=== PATIENT | female | born 1935 | race Caucasian/White ===

== ENCOUNTER 2017-10-26 16:06 | Inpatient (IN) ==
[2017-10-26] MEDS ORDERED: Sod Chloride 0.9% Inj 1,000 ML IV.CONT SCH (17:00)
[2017-10-26 17:46] LABS: Baso # (Auto) 0.1 th/mm3 (0.0-0.2); Baso % (Auto) 0.4 % (0.0-2.0); Eos # (Auto) 0.2 th/mm3 (0.0-0.4); Eos % (Auto) 1.2 % (0.0-4.0); Hematocrit 46.8 % (35.0-46.0); Hemoglobin 15.1 gm/dL (11.6-15.3); Lymph # (Auto) 3.8 th/mm3 (1.0-4.8); Lymph % (Auto) 27.1 % (9.0-44.0); Mean Corpuscular HGB Conc 32.3 % (32.0-36.0); Mean Corpuscular Hemoglobin 23.9 pg (27.0-34.0); Mean Corpuscular Volume 73.9 fL (80.0-100.0); Mean Platelet Volume 8.1 fL (7.0-11.0); Mono # (Auto) 1.1 th/mm3 (0.0-0.9); Mono % (Auto) 8.2 % (0.0-8.0); Neut # (Auto) 8.8 th/mm3 (1.8-7.7); Neut % (Auto) 63.1 % (16.0-70.0); Platelet Count 397 th/mm3 (150-450); Red Blood Count 6.33 mil/mm3 (4.00-5.30); Red Cell Distribution Width 17.6 % (11.6-17.2); White Blood Count 13.9 th/mm3 (4.0-11.0)
--- NOTE | 2017-10-26 17:47 | XR ---
EXAM DATE: 10/26/2017 5:39 PM EDT AGE/SEX: 82 years / Female INDICATIONS: Stroke symptoms. CLINICAL DATA: This is the patient's initial encounter. Patient reports that signs and symptoms have been present for 1 day and indicates a pain score of 0/10. MEDICAL/SURGICAL HISTORY: None. None. COMPARISON: No prior exams available for comparison. FINDINGS: A single AP view of the chest demonstrates the lungs to be symmetrically aerated without evidence of mass, infiltrate or effusion. The cardiomediastinal contours are unremarkable. Osseous structures a re intact. CONCLUSION: No acute cardiopulmonary disease demonstrated. Electronically signed by: Dave Lepe MD 10/26/2017 5:45 PM EDT
--- NOTE | 2017-10-26 17:50 | ED ---
HPI General Chief complaint: Neuro Symptoms/Deficit Stated complaint: stroke symptoms/dr sent Time Seen by Provider: 10/26/17 16:23 History of Present Illness HPI narrative: This is a 82-year-old female with history of hypertension, hyperlipidemia, diabetes mellitus, who presents today with complaints that she is not been as verbal as she normally is for the last 4 days. Patient's daughter and at the bedside report that she has had decreased mentation over the last 4 days. They state that she normally is very verbal and communicative. They state that over the last 4 days she has not been communicative and they have noted slight slurred speech. There is no complaints of headache. There is no complaints of extremity weakness or unsteady gait. states that they went to their primary care doctor, Dr. BP Jimenez in [place]. They report that Dr. Jimenez told him that he was concerned that she had had a stroke. He had ordered an outpatient MRI for tomorrow however they stated that they wish to have the MRI sooner if he was concerned about a stroke. He informed him that they were going to come here for further evaluation. There are no other further complaints at the time of my evaluation. Related Data Home Medications Medication Instructions Recorded Confirmed aspirin 81 mg PO DAILY 10/26/17 10/26/17 atorvastatin 10 mg PO DAILY 10/26/17 10/26/17 fluticasone-salmeterol [Advair 1 inh INHALATION BID 10/26/17 10/26/17 Diskus] metformin 500 mg PO BID 10/26/17 10/26/17 metoprolol tartrate 50 mg PO BID 10/26/17 10/26/17 polysaccharide iron complex 150 mg PO DAILY 10/26/17 10/26/17 [Poly-Iron] triamterene-hydrochlorothiazid 1 tab PO DAILY 10/26/17 10/26/17 [Maxzide-25mg] Allergies Allergy/AdvReac Type Severity Reaction Status Date / Time No Known Allergies Allergy Unverified 10/26/17 16:28 Review of Systems ROS: all other systems reviewed are negative Constitutional Denies chills and Denies fever(s) Eyes Denies blurry vision and Denies diplopia ENT Denies vertigo, Denies dizziness and Denies headache(s) Cardiovascular Denies chest pain and Denies lightheadedness Respiratory Denies chest congestion and Denies dyspnea Gastrointestinal Denies nausea and Denies vomiting Genitourinary Reports system reviewed and no additional complaints, except [facility] Musculoskeletal Reports system reviewed and no additional complaints, except as [facility] Integumentary/Breasts Reports system reviewed and no additional complaints, except as [facility] Neurologic Reports behavioral changes, Denies dizziness, Denies headache(s), Denies lack of coordination, Denies memory loss and Reports other Psychiatric Reports system reviewed and no additional complaints, except as [facility] Endocrine Reports system reviewed and no additional complaints, except as [facility] PMFSH Social History Social History Second Hand Smoke Exposure: No Smoking Status: Never smoker How Often Do You Have a Drink Containing Alcohol: Never Recent Travel in [facility] within the Last 8 Weeks: No Recent Out of Country Travel within the Last 8 Weeks: No Immunization History Tetanus Immunization: Unsure Exam Narrative Exam Narrative: GENERAL: Well-developed well-nourished female in no acute respiratory distress. SKIN: Focused skin assessment warm/dry. HEAD: Atraumatic. Normocephalic. EYES: Extraocular muscles were intact. No scleral icterus. No injection or drainage. ENT: No nasal bleeding or discharge. Mucous membranes pink and moist. NECK: Trachea midline. Supple. CARDIOVASCULAR: Regular rate and rhythm. No murmur appreciated. RESPIRATORY: No accessory muscle use. Clear to auscultation. Breath sounds equal bilaterally. GASTROINTESTINAL: Abdomen soft, non-tender, nondistended. Hepatic and splenic margins not palpable. MUSCULOSKELETAL: No obvious deformities. No clubbing. No cyanosis. No edema. NEUROLOGICAL: Awake and alert. No obvious cranial nerve deficits. Motor grossly within normal limits. Speech appears normal. and daughter state that it seems slightly more slurred than normal. Course Initial Documented Vital Signs Temperature 97.8 F 10/26/17 16:14 Pulse Rate 73 10/26/17 16:14 Respiratory Rate 17 10/26/17 16:14 Blood Pressure 204/85 H 10/26/17 16:14 Pulse Oximetry 96 10/26/17 16:14 Last Documented Vital Signs Temperature 97.8 F 10/26/17 16:14 Pulse Rate 76 10/26/17 19:20 Respiratory Rate 16 10/26/17 19:20 Blood Pressure 181/86 H 10/26/17 19:20 Pulse Oximetry 97 10/26/17 19:20 Medical Decision Making MDM Narrative Medical decision making narrative: This is a 82-year-old female history of hypertension, hyperlipidemia, diabetes mellitus, presents with 4 day history of decreased speaking and questionable slurred speech. Patient was seen by her primary care doctor today who recommended getting an MRI because he was concerned about a stroke. The patient has no focal deficits. 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 I do not appreciate slurred speech at this time. 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 The patient is out of the window. She will be admitted to the hospital and have a neurology consult. There is a [facility] the [facility]. Differential Diagnosis Differential Diagnosis: CVA versus TIA versus metabolic derangement Lab Data Result diagrams: 10/26/17 17:10 10/26/17 17:10 Lab Results 10/26/17 10/26/17 10/26/17 Range/Units 17:10 17:10 17:10 WBC 13.9 H (4.0-11.0) th/mm3 RBC 6.33 H (4.00-5.30) mil/mm3 Hgb 15.1 (11.6-15.3) gm/dL Hct 46.8 H (35.0-46.0) % MCV 73.9 L (80.0-100.0) fL MCH 23.9 L (27.0-34.0) pg MCHC 32.3 (32.0-36.0) % RDW 17.6 H (11.6-17.2) % Plt Count 397 (150-450) th/mm3 MPV 8.1 (7.0-11.0) fL Neut % (Auto) 63.1 (16.0-70.0) % Lymph % (Auto) 27.1 (9.0-44.0) % Cass % (Auto) 8.2 H (0.0-8.0) % Eos % (Auto) 1.2 (0.0-4.0) % Baso % (Auto) 0.4 (0.0-2.0) % Neut # (Auto) 8.8 H (1.8-7.7) th/mm3 Lymph # (Auto) 3.8 (1.0-4.8) th/mm3 Cass # (Auto) 1.1 H (0.0-0.9) th/mm3 Eos # (Auto) 0.2 (0.0-0.4) th/mm3 Baso # (Auto) 0.1 (0.0-0.2) th/mm3 WBC Differential . Differential Comment Auto diff final PT 10.4 (9.8-11.6) sec INR 1.0 Ratio APTT 27.3 (24.3-30.1) sec Sodium 140 (136-145) meq/L Potassium 3.9 (3.5-5.1) meq/L Chloride 104 (98-107) meq/L Carbon Dioxide 25.6 (21.0-32.0) meq/L Anion Gap 10 (5-15) meq/L BUN 17 (7-18) mg/dL Creatinine 1.25 H (0.50-1.00) mg/dL Estimated GFR 41 L (>89) mL/min Random Glucose 103 (74-106) mg/dL Calcium 9.8 (8.5-10.1) mg/dL Imaging Data Radiologist's impression: Chest X-Ray 10/26/17 16:51 CONCLUSION: No acute cardiopulmonary disease demonstrated. Head CT 10/26/17 16:51 CONCLUSION: 1. Focal hypodensity in the left thalamus characteristic of a nonhemorrhagic infarct. 2. No other significant abnormality. . Head MRI 10/26/17 16:56 CONCLUSION: 1. Acute nonhemorrhagic infarct left thalamus 2. Otherwise unremarkable exam. Head MRA 10/26/17 16:56 CONCLUSION: 1. Variant anatomy. Otherwise, unremarkable exam. Discharge Plan Discharge Disposition Patient Disposition: 30 Still Patient Discharge Details Diagnosis: Thalamic stroke, Hypertension, Diabetes mellitus, Hyperlipidemia Physicians Team ED Provider: Lamont Gil Primary Care Provider: UNKNOWN, Rxs /Orders / Referrals /Forms Prescriptions: No Action metformin 500 mg Tablet 500 mg PO BID RF: 0 fluticasone-salmeterol [Advair Diskus] 250-50 mcg/dose Blister With Device 1 inh INHALATION BID RF: 0 atorvastatin 10 mg Tablet 10 mg PO DAILY RF: 0 polysaccharide iron complex [Poly-Iron] 150 mg iron Capsule 150 mg PO DAILY RF: 0 aspirin 81 mg Tablet,Delayed Release (Dr/Ec) 81 mg PO DAILY RF: 0 metoprolol tartrate 50 mg Tablet 50 mg PO BID RF: 0 triamterene-hydrochlorothiazid [Maxzide-25mg] 37.5-25 mg Tablet 1 tab PO DAILY RF: 0 Status ED Status: With Doctor
[2017-10-26 17:53] LABS: Activated Partial Thrombo Time 27.3 sec (24.3-30.1); Prothrombin Time 10.4 sec (9.8-11.6)
[2017-10-26 17:54] LABS: Calcium 9.8 mg/dL (8.5-10.1); Carbon Dioxide 25.6 meq/L (21.0-32.0); Potassium 3.9 meq/L (3.5-5.1)
--- NOTE | 2017-10-26 18:18 | MR ---
EXAM DATE: 10/26/2017 6:11 PM EDT AGE/SEX: 82 years / Female INDICATIONS: CVA. Expressive aphasia. CLINICAL DATA: This is the patient's initial encounter. Patient reports that signs and symptoms have been present for 1 day and indicates a pain score of 0/10. MEDICAL/SURGICAL HISTORY: Diabetes mellitus type II. Hypertension. None. COMPARISON: [facility] [place], CT HEAD W/O CONTRAST, 10/26/2017. . TECHNIQUE: Multiplanar, multisequence examination of the brain was performed without contrast. FINDINGS: Cerebrum: Focal restricted diffusion is identified in the left thalamus. Signal intensity throughout the cerebral hemispheres otherwise unremarkable. There is no evidence of hemorrhage, mass effect or significant edema. White Matter: No significant signal abnormalities are seen in the white matter. Posterior Fossa: The cerebellum and brainstem are intact. The 4th ventricle is midline. The cerebel lopontine angle is unremarkable. The cerebellar tonsils are normal in position. Diffusion Imaging: No focal areas of restricted diffusion are seen. No evidence of acute infarction . Extracranial: The visualized portions of the orbits and paranasal sinuses are unremarkable. CONCLUSION: 1. Acute nonhemorrhagic infarct left thalamus 2. Otherwise unremarkable exam. Electronically signed by: Mele Keen MD 10/26/2017 6:16 PM EDT
--- NOTE | 2017-10-26 18:24 | MR ---
EXAM DATE: 10/26/2017 6:08 PM EDT AGE/SEX: 82 years / Female INDICATIONS: CVA. Expressive aphasia. CLINICAL DATA: This is the patient's initial encounter. Patient reports that signs and symptoms have been present for 1 day and indicates a pain score of 0/10. MEDICAL/SURGICAL HISTORY: Diabetes mellitus type II. Hypertension. None. COMPARISON: [facility] [place], MR HEAD W/O CONTRAST, 10/26/2017. . TECHNIQUE: 3D [id number] MRA was performed. Source images, multiplanar STS MIP, and 3D volum e MIP reconstructions were reviewed. FINDINGS: There is excellent visualization of the major intracranial arteries out to the second-order branch ve ssels. Variant anatomy is seen with persistent circulation bilaterally. There is no evidence f or aneurysm, vessel truncation or stenosis, and no evidence for vascular malformation. CONCLUSION: 1. Variant anatomy. Otherwise, unremarkable exam. Electronically signed by: Vinayak Mcneill MD 10/26/2017 6:22 PM EDT
--- NOTE | 2017-10-26 18:26 | CT ---
EXAM DATE: 10/26/2017 6:21 PM EDT AGE/SEX: 82 years / Female INDICATIONS: Altered mental status, abnormal speech, aphasia. CLINICAL DATA: This is the patient's initial encounter. Patient reports that signs and symptoms have been present for 1 week and indicates a pain score of 0/10. MEDICAL/SURGICAL HISTORY: Hypertension. Diabetes. None. RADIATION DOSE: 56.35 CTDI (mGy) COMPARISON: [facility] [place], MR HEAD W/O CONTRAST, 10/26/2017. . TECHNIQUE: CT of the head without contrast. Using automated exposure control and adjustment of the mA and/or kV according to patient size, radiation dose was kept as low as reasonably achievable to ob tain optimal diagnostic quality images. DICOM format image data is available electronically for revi ew and comparison. FINDINGS: Cerebrum: Focal hypodensity is identified within the left thalamus. Cerebral hemispheres are otherwi se unremarkable. There is no subacute hemorrhage, mass effect or edema. CSF spaces are unremarkable. Posterior Fossa: The cerebellum and brainstem are intact. The 4th ventricle is midline. The cerebe llopontine angle is unremarkable. Extracranial: The visualized portion of the orbits is intact. Skull: The calvaria is intact. No evidence of skull fracture. CONCLUSION: 1. Focal hypodensity in the left thalamus characteristic of a nonhemorrhagic infarct. 2. No other significant abnormality. . Electronically signed by: Mele Keen MD 10/26/2017 6:24 PM EDT
[2017-10-26] MEDS ORDERED: Dextrose 50% in Water 50 ML Vial IV.PUSH PRN (20:01)
--- NOTE | 2017-10-26 21:28 | P.HP ---
History of Present Illness Service: [facility] Primary Care Physician: UNKNOWN History of Present Illness: 82-year-old female with a past medical history significant for diabetes mellitus , hypertension and hyperlipidemia presents to the emergency department for evaluation of possible stroke. The patient's family reports that approximately 4 days ago she began to be slow to respond with word finding difficulties. She has been significantly fatigued without lateralizing weakness. No facial droop was noted. No slurred speech. The patient was seen by her PCP today who was concerned that she may have had a stroke. He ordered an outpatient MRI that could not be done until tomorrow. The family wished to have her worked up sooner than that so they brought her to the emergency department for further evaluation. Inpatient Certification: I certify that the inpatient services were ordered in accordance with Medicare regulations governing the order. This includes certification that hospital inpatient services are reasonable and necessary and in the case of services not specified as inpatient-only under 42 CFR 419.22(n), that they are appropriately provided as inpatient services in accordance to with the 2-midnight benchmark under 43 CFR 412.3(e) Estimated Total Length of Stay (Days): 2 Plans for Post Hospital Care: Not yet determined Review of Systems Denies fever or chills Denies blurry vision, otorrhea, rhinorrhea Denies sore throat and cough No chest pain, palpitations No shortness of breath or wheezing No abdominal pain Denies constipation/diarrhea/nausea/vomiting Denies muscle pain No rashes PMFSH - History History Provided By: Patient, Family Member, Significant Other - Medical History Medical History: Medical History (Last Updated 10/26/17 @ 21:23 by Zoë Herrmann MD) Diabetes mellitus Hyperlipidemia Hypertension - Surgical History Surgical History: Surgical History (Last Updated 10/26/17 @ 21:23 by Zoë Herrmann MD) No history of previous surgery - Family History Family History: Family History (Last Updated 10/26/17 @ 21:23 by Zoë Herrmann MD) Other Diabetes mellitus - Tobacco History Second Hand Smoke Exposure: No Tobacco Use In Past 30 Days: No Smoking Status: Never smoker - Alcohol History How Often Do You Have a Drink Containing Alcohol: Never - Travel History Recent Travel in the [place] Within the Last 8 Weeks: No Recent Travel Out of the Country Within the Last 8 Weeks: No - Immunization History Tetanus Immunization: Unsure Medications and Allergies Active Medications: Active Medications Aspirin (Ecotrin) 81 mg PO DAILY [facility] Atorvastatin Calcium (Lipitor) 10 mg PO DAILY [facility] Budesonide/Formoterol Fumarate (Symbicort 160/4.5 Mcg Inh) 2 puff INH BID [facility] Dextrose (D50w Vial) 50 ml IV.PUSH UNSCH PRN PRN Reason: PER HYPOGLYCEMIA PROTOCOL Glucagon (Glucagon Inj) 1 mg OTHER PRN PRN PRN Reason: for Hypoglycemia Protocol Heparin Sodium (Porcine) (Heparin Inj) 5,000 units SQ Q8HR STEPHEN Sodium Chloride (Ns Inj) 1,000 mls @ 70 mls/hr IV.CONT .[id number] [facility] Insulin Human Regular (Novolin R Correctional Sugar Inj) 0 units SQ ACHS AND 3AM STEPHEN; Protocol Metoprolol Tartrate (Lopressor) 50 mg PO BID [facility] Sodium Chloride (Ns Flush) 2 ml IV.FLUSH BID STEPHEN Sodium Chloride (Ns Flush) 2 ml IV.FLUSH PRN PRN PRN Reason: FLUSH AFTER USING IV ACCESS Triamterene/HCTZ (Maxzide 37.5 Mg-25 Mg) 1 tab PO DAILY [facility] Allergies Allergy/AdvReac Type Severity Reaction Status Date / Time No Known Allergies Allergy Unverified 10/26/17 16:28 Home Medications Medication Instructions Recorded Confirmed Type aspirin 81 mg PO DAILY 10/26/17 10/26/17 History atorvastatin 10 mg PO DAILY 10/26/17 10/26/17 History fluticasone-salmeterol [Advair 1 inh INHALATION BID 10/26/17 10/26/17 History Diskus] metformin 500 mg PO BID 10/26/17 10/26/17 History metoprolol tartrate 50 mg PO BID 10/26/17 10/26/17 History polysaccharide iron complex 150 mg PO DAILY 10/26/17 10/26/17 History [Poly-Iron] triamterene-hydrochlorothiazid 1 tab PO DAILY 10/26/17 10/26/17 History [Maxzide-25mg] Exam Vital signs: Vital Signs 10/26/17 16:14 10/26/17 16:30 10/26/17 16:51 Temperature 97.8 F Pulse Rate 73 73 Respiratory Rate 17 17 Blood Pressure 204/85 H 192/80 H Pulse Oximetry 96 97 96 10/26/17 17:45 10/26/17 19:20 Temperature Pulse Rate 75 76 Respiratory Rate 17 16 Blood Pressure 166/71 H 181/86 H Pulse Oximetry 98 97 Intake & Output 10/26/17 10/26/17 10/27/17 06:59 18:59 06:59 Weight 145 kg Narrative: Gen.: No acute distress Head: Normocephalic. Atraumatic. EENT: Pupils equal round and reactive to light. Nose without drainage. Airway intact. Throat without injection. Cardiovascular: Regular rate and rhythm. No murmurs, rubs or gallops. Respiratory: Lungs clear to auscultation bilaterally. No wheezes or rhonchi. Abdomen: Soft, nontender, nondistended. No peritoneal signs. Musculoskeletal: No gross deformities. No edema. Skin: No obvious rashes or erythema. Neuro: Sensation intact throughout. Cranial nerves II through XII intact. 5/5 strength in the upper and lower extremities. 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 Normal speech however patient is slow to respond to questions. Results - Labs CBC & Chem 7: 10/26/17 17:10 10/26/17 17:10 Labs: Laboratory Results - last 24 hr 10/26/17 10/26/17 10/26/17 17:10 17:10 17:10 WBC 13.9 H RBC 6.33 H Hgb 15.1 Hct 46.8 H MCV 73.9 L MCH 23.9 L MCHC 32.3 RDW 17.6 H Plt Count 397 MPV 8.1 Neut % (Auto) 63.1 Lymph % (Auto) 27.1 Swift % (Auto) 8.2 H Eos % (Auto) 1.2 Baso % (Auto) 0.4 Neut # (Auto) 8.8 H Lymph # (Auto) 3.8 Swift # (Auto) 1.1 H Eos # (Auto) 0.2 Baso # (Auto) 0.1 WBC Differential . Differential Comment Auto diff final PT 10.4 INR 1.0 APTT 27.3 Sodium 140 Potassium 3.9 Chloride 104 Carbon Dioxide 25.6 Anion Gap 10 BUN 17 Creatinine 1.25 H Estimated GFR 41 L Random Glucose 103 Calcium 9.8 - Imaging Impressions Chest X-Ray 10/26/17 16:51 CONCLUSION: No acute cardiopulmonary disease demonstrated. Head CT 10/26/17 16:51 CONCLUSION: 1. Focal hypodensity in the left thalamus characteristic of a nonhemorrhagic infarct. 2. No other significant abnormality. . Head MRI 10/26/17 16:56 CONCLUSION: 1. Acute nonhemorrhagic infarct left thalamus 2. Otherwise unremarkable exam. Head MRA 10/26/17 16:56 CONCLUSION: 1. Variant anatomy. Otherwise, unremarkable exam. Caprini VTE Risk Assessment Caprini VTE Risk Assessment: Moderate/High Risk (score >= 2) Caprini Risk Assessment Model: Point Value = 1 Point Value = 2 Point Value = 3 Point Value = 5 Age 41-60 Minor surgery BMI > 25 kg/m2 Swollen legs Varicose veins or History of unexplained or recurrent spontaneous Oral contraceptives or hormone replacement Sepsis (< 1 month) Serious lung disease, including pneumonia (< 1 month) Abnormal pulmonary function Acute myocardial infarction Congestive heart failure (< 1 month) History of inflammatory bowel disease Medical patient at bed rest Age 61-74 Arthroscopic surgery Major open surgery (> 45 min) Laparoscopic surgery (> 45 min) Malignancy Confined to bed (> 72 hours) Immobilizing plaster cast Central venous access Age >= 75 History of VTE Family history of VTE Factor V Leiden Prothrombin [id number] Lupus anticoagulant Anticardiolipin antibodies Elevated serum homocysteine Heparin-induced thrombocytopenia Other congenital or acquired thrombophilia Stroke (< 1 month) Elective arthroplasty Hip, pelvis, or leg fracture Acute spinal cord injury (< 1 month) Prophylaxis Regimen: Total Risk Factor Score Risk Level Prophylaxis Regimen 0-1 Low Early ambulation 2 Moderate Order ONE of the following: *Sequential Compression Device (SCD) *Heparin 5000 units SQ BID 3-4 Higher Order ONE of the following medications: *Heparin 5000 units SQ TID *Enoxaparin/Lovenox 40 mg SQ daily (WT < 150 kg, CrCl > 30 mL/min) *Enoxaparin/Lovenox 30 mg SQ daily (WT < 150 kg, CrCl > 10-29 mL/min) *Enoxaparin/Lovenox 30 mg SQ BID (WT < 150 kg, CrCl > 30 mL/min) AND/OR *Sequential Compression Device (SCD) 5 or more Highest Order ONE of the following medications: *Heparin 5000 units SQ TID (Preferred with Epidurals) *Enoxaparin/Lovenox 40 mg SQ daily (WT < 150 kg, CrCl > 30 mL/min) *Enoxaparin/Lovenox 30 mg SQ daily (WT < 150 kg, CrCl > 10-29 mL/min) *Enoxaparin/Lovenox 30 mg SQ BID (WT < 150 kg, CrCl > 30 mL/min) AND *Sequential Compression Device (SCD) Assessment and Plan - Plan Assessment/plan: 1. CVA MRI significant for acute nonhemorrhagic infarct of the left thalamus MRA without acute findings Neurology consulted, appreciate recommendations PT/OT/speech Continue daily aspirin 2. Diabetes mellitus Holding home metformin Sliding-scale insulin Monitor blood glucose A1c pending 3. Hypertension/hyperlipidemia Continue home medications Lipid profile pending FEN N.p.o. Electrolytes: Monitor and replete as needed NS at 70 cc/hour Heparin
[2017-10-26] MEDS: Metoprolol Tartrate 50 MG Tablet PO SCH (22:16)
[2017-10-26] MEDS: Heparin - SQ 10,000 UNITS/ML Vial SQ SCH (22:16)
[2017-10-26] MEDS: Insulin NovoLIN Regular Correctional Sugar Inj SQ SCH (22:20)
[2017-10-26] MEDS: Sod Chloride 0.9% Inj 1,000 ML IV.CONT SCH (22:21)
[2017-10-26] MEDS: Budesonide-Formoterol 160/4.5 MCG 6 GM Inhaler INH SCH (22:21)
--- NOTE | 2017-10-27 00:08 | US ---
EXAM DATE: 10/26/2017 11:03 PM EDT AGE/SEX: 82 years / Female INDICATIONS: CVA. CLINICAL DATA: This is the patient's initial encounter. Patient reports that signs and symptoms have been present for 4 - 6 days and indicates a pain score of 0/10. MEDICAL/SURGICAL HISTORY: Diabetes. Hypertension. Hypercholesterolemia. None. COMPARISON: No prior exams available for comparison. VELOCITY PARAMETERS: ICA/CCA Ratio: Right 0.98 , Left 0.94 ICA: Right 97 cm/sec, Left 103 cm/sec CCA: Right 99 cm/sec, Left 110 cm/sec ECA: Right 147 cm/sec, Left 109 cm/sec Vertebral: Right 57 cm/sec antegrade, Left 80 cm/sec antegrade FINDINGS: Right Carotid: There is mild atherosclerotic plaque in the carotid bulb..The waveforms are within no rmal limits. Left Carotid: There is mild atherosclerotic plaque in the carotid bulb. The waveforms are within nor mal limits. Other: None. CONCLUSION: 1. Right Internal Carotid Artery: Findings indicate <50% stenosis. 2. Left Internal Carotid Artery: Findings indicate <50% stenosis. Electronically signed by: Dave Sam MD 10/27/2017 12:06 AM EDT
[2017-10-27] MEDS: Insulin NovoLIN Regular Correctional Sugar Inj SQ SCH ×5 (03:35→21:16)
[2017-10-27] MEDS: Sod Chloride 0.9% Inj 1,000 ML IV.CONT SCH ×3 (06:39→21:24)
[2017-10-27] MEDS: Heparin - SQ 10,000 UNITS/ML Vial SQ SCH ×3 (06:40→21:15)
[2017-10-27] MEDS: Metoprolol Tartrate 50 MG Tablet PO SCH ×2 (08:36→21:15)
[2017-10-27] MEDS: Budesonide-Formoterol 160/4.5 MCG 6 GM Inhaler INH SCH ×2 (08:37→21:16)
[2017-10-27 08:39] LABS: Chol/HDL Ratio 3.26 Ratio; HDL Cholesterol 41.4 mg/dL (40.0-60.0)
--- NOTE | 2017-10-27 09:22 | MB ---
cc: Jorgito Nicolas MD DATE: 10/27/2017 HISTORY OF PRESENT ILLNESS: She is an 82-year-old right-handed woman with history of hypertension, borderline diabetes, hypercholesterolemia. She does take a statin and a baby aspirin a day and about 4 days ago began to have some trouble with her speech, which seems to have improved somewhat. She was admitted to the hospital last evening. She would not come in the hospital immediately . Her MRI yesterday shows a left thalamic infarct, but also an old left cerebellar infarct. MEDICATIONS AT HOME: Triamterene/hydrochlorothiazide, the 81 of aspirin a day, some inhaler, metoprolol, metformin, atorvastatin. REVIEW OF SYSTEMS: Denies any history of renal, hepatic, pulmonary disease, thyroid disease, lupus, ulcer, cancer, seizure, prior stroke, any dizziness in the past, headache, chest pain, palpitations, [place], CABG, stent, angioplasty, A-Fib, or Coumadin. SOCIAL HISTORY: Nonsmoker or drinker, lives with her . FAMILY HISTORY: Negative for cancer, seizure, or stroke. PHYSICAL EXAMINATION: VITAL SIGNS: Afebrile, 153/68, 18, 68. Highest blood pressure 204/85. NECK: There are no carotid or vertebral bruits. HEART: Regular rate and rhythm. I did not detect a murmur. NEUROLOGIC: Pupils are equal. Visual chua are full. Extraocular movements intact without nystagmus. Face is symmetric with normal sensation. Tongue was midline. No drift. Normal strength in upper and lower extremities bilaterally. DTRs are trace throughout. Toes downgoing bilaterally. Pinprick is intact throughout. She has intact [id number]. She can repeat and talk well, although she appears to be a little bit abulic. DIAGNOSTIC DATA: CBC: White count 13.9, otherwise normal. Basic metabolic profile was normal except creatinine 1.25. GFR was 41. LDL cholesterol normal. Coags normal. MRA [place] She appears to be right vertebral dominant. There is a scant left vertebral artery. MRI of the brain as above, the acute left thalamic and old left cerebellar infarct. It appears at the posterior cerebral arteries have a lot of contribution from the anterior circulation, some from the posterior circulation. The left posterior cerebral artery appears to have more posterior circulation contribution than the right, but the [employer] is mainly off the anterior circulation. 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 Diminished flow of the left vertebral artery. We will check a CTA of that left vertebral artery, echo and Holter, some additional blood work. I will put her on Plavix. Continue her on her statin. Get her up out of bed. She could go home later today if the Holter is on, the echo is negative, and the CTA I will have to review before discharge. The med team can call me about that. Also, check a UA on her with the elevated white count. MD MAURICE Martínez/aly , 08:59 AM , 09:05 AM
--- NOTE | 2017-10-27 09:32 | P.PN ---
Physical Exam Vital signs: Vital Signs 10/26/17 16:14 10/26/17 16:30 10/26/17 16:51 Temperature 97.8 F Pulse Rate 73 73 Respiratory Rate 17 17 Blood Pressure 204/85 H 192/80 H Pulse Oximetry 96 97 96 10/26/17 17:45 10/26/17 19:20 10/26/17 20:00 Temperature 98.1 F Pulse Rate 75 76 84 Respiratory Rate 17 16 18 Blood Pressure 166/71 H 181/86 H 172/70 H Pulse Oximetry 98 97 94 L 10/27/17 00:00 10/27/17 01:32 10/27/17 04:00 Temperature 98.1 F 98.0 F Pulse Rate 85 83 68 Respiratory Rate 18 18 Blood Pressure 178/79 H 153/68 H Pulse Oximetry 95 95 10/27/17 05:14 Temperature Pulse Rate Respiratory Rate 20 Blood Pressure Pulse Oximetry Intake & Output 10/26/17 10/27/17 10/27/17 18:59 06:59 18:59 Intake Total 1000 / 1000 Balance 1000 / 1000 Weight 145 kg Intake: IV 1000 / 1000 NS Inj 1,000 ML @ 70 mls/hr IV. 1000 / 1000 CONT .[id number] [facility] Rx#:[id number] Other: # Voids 3 Date of Last Bowel Movement 10/26/17 Narrative: Subjective: In the chair feels improving. Speech improving, still takes time to answer questions. Some nausea no vomiting able to keep down some food. No new motor , speech or sensory deficit. No change in vision. Patient complains of pain in her legs worse on the right leg, will do doppler US to r/o dvt No n/v/d/c. Denies chest pain or sob. No fever or chills. Physical exam GENERAL: Elderly female, with slow responses, appears tired. CARDIOVASCULAR: Regular rate and rhythm. RESPIRATORY: No accessory muscle use. Clear to auscultation. Breath sounds equal bilaterally. GASTROINTESTINAL: Abdomen soft, non-tender, nondistended. Hepatic and splenic margins not palpable. MUSCULOSKELETAL: Extremities without clubbing, cyanosis, or edema. No obvious deformities. NEUROLOGICAL: Awake and alert. No obvious cranial nerve deficits. Motor grossly within normal limits. Five out of 5 muscle strength in the arms and legs. Normal speech. Assessment and Plan 1. 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 Start Plavix Plan for CTA neck. Holter monitor ECHO pending Allow permissive HTN, NS at 70 cc/hour 2. Diabetes mellitus Holding home metformin Sliding-scale insulin Monitor blood glucose A1c pending 3. Hypertension/hyperlipidemia Continue home medications Lipid profile pending 4. Mild leukocytosis, check UA. Might be reactive from stroke. 5. Pain in her legs do doppler US to r/o DVT DVT ppx with SQ Heparin Discussed with the patient, family at bedside. Dr Nicolas neurology If echo normal, CTA normal, holter monitor can DC patient. Will repeat labs tomorrow as patient with leukocytosis. Results - Labs CBC & Chem 7: 10/26/17 17:10 10/26/17 17:10 Laboratory Results - last 24 hr 10/26/17 10/26/17 10/26/17 17:10 17:10 17:10 WBC 13.9 H RBC 6.33 H Hgb 15.1 Hct 46.8 H MCV 73.9 L MCH 23.9 L MCHC 32.3 RDW 17.6 H Plt Count 397 MPV 8.1 Neut % (Auto) 63.1 Lymph % (Auto) 27.1 [place] % (Auto) 8.2 H Eos % (Auto) 1.2 Baso % (Auto) 0.4 Neut # (Auto) 8.8 H Lymph # (Auto) 3.8 [place] # (Auto) 1.1 H Eos # (Auto) 0.2 Baso # (Auto) 0.1 WBC Differential . Differential Comment Auto diff final PT 10.4 INR 1.0 APTT 27.3 Sodium 140 Potassium 3.9 Chloride 104 Carbon Dioxide 25.6 Anion Gap 10 BUN 17 Creatinine 1.25 H Estimated GFR 41 L POC Glucose Random Glucose 103 Calcium 9.8 Triglycerides Cholesterol LDL Cholesterol, Calc HDL Cholesterol Cholesterol/HDL Ratio 10/26/17 10/27/17 10/27/17 22:20 03:48 06:59 WBC RBC Hgb Hct MCV MCH MCHC RDW Plt Count MPV Neut % (Auto) Lymph % (Auto) [place] % (Auto) Eos % (Auto) Baso % (Auto) Neut # (Auto) Lymph # (Auto) [place] # (Auto) Eos # (Auto) Baso # (Auto) WBC Differential Differential Comment PT INR APTT Sodium Potassium Chloride Carbon Dioxide Anion Gap BUN Creatinine Estimated GFR POC Glucose 127 H 133 H Random Glucose Calcium Triglycerides 249 H Cholesterol 135 LDL Cholesterol, Calc 44 HDL Cholesterol 41.4 Cholesterol/HDL Ratio 3.26 10/27/17 08:35 WBC RBC Hgb Hct MCV MCH MCHC RDW Plt Count MPV Neut % (Auto) Lymph % (Auto) [place] % (Auto) Eos % (Auto) Baso % (Auto) Neut # (Auto) Lymph # (Auto) [place] # (Auto) Eos # (Auto) Baso # (Auto) WBC Differential Differential Comment PT INR APTT Sodium Potassium Chloride Carbon Dioxide Anion Gap BUN Creatinine Estimated GFR POC Glucose 144 H Random Glucose Calcium Triglycerides Cholesterol LDL Cholesterol, Calc HDL Cholesterol Cholesterol/HDL Ratio - Imaging Impressions Carotid Doppler Study 10/26/17 00:00 CONCLUSION: 1. Right Internal Carotid Artery: Findings indicate <50% stenosis. 2. Left Internal Carotid Artery: Findings indicate <50% stenosis. Chest X-Ray 10/26/17 16:51 CONCLUSION: No acute cardiopulmonary disease demonstrated. Head CT 10/26/17 16:51 CONCLUSION: 1. Focal hypodensity in the left thalamus characteristic of a nonhemorrhagic infarct. 2. No other significant abnormality. . Head MRI 10/26/17 16:56 CONCLUSION: 1. Acute nonhemorrhagic infarct left thalamus 2. Otherwise unremarkable exam. Head MRA 10/26/17 16:56 CONCLUSION: 1. Variant anatomy. Otherwise, unremarkable exam.
[2017-10-27] MEDS: Triamterene/HCTZ 37.5 MG/25 MG Tablet PO SCH (10:25)
--- NOTE | 2017-10-27 11:37 | CT ---
EXAM DATE: 10/27/2017 10:32 AM EDT AGE/SEX: 82 years / Female INDICATIONS: Left vertebral artery stenosis. CLINICAL DATA: This is the patient's initial encounter. Patient reports that signs and symptoms have been present for 2 days and indicates a pain score of 0/10. MEDICAL/SURGICAL HISTORY: Hypertension. Diabetes. . RADIATION DOSE: 10.52 CTDI (mGy) COMPARISON: No prior exams available for comparison. TECHNIQUE: Volumetric scanning was performed using a multirow detector CT scanner during bolus infus ion of 73 ml Omnipaque 350 (iohexol) nonionic water-soluble contrast as a single exam dose. The da ta was postprocessed with a variety of visualization algorithms including full-volume maximum intensi ty projection, multiplanar sliding thin-slab reformation, curved-planar reformation, and surface-rend ering techniques. Using automated exposure control and adjustment of the mA and/or kV according to p atient size, radiation dose was kept as low as reasonably achievable to obtain optimal diagnostic rigoberto lity images. DICOM format image data is available electronically for review and comparison. FINDINGS: Aortic Arch: There is a three-vessel origin of the great vessels from the aorta. No evidence of ost ial narrowing Right Carotid: Mild calcified atherosclerotic plaque involving the carotid bulb and ICA origin. No l uminal narrowing utilizing NASCET criteria. No ulceration. The CCA, ECA, and extracranial ICA are pat ent. Left Carotid: Mild calcified atherosclerotic plaque involving the carotid bulb and ICA origin. No curt arianna narrowing utilizing NASCET criteria. No ulceration. The CCA, ECA, and extracranial ICA are abbott nt.. 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 The right vertebral artery is patent and is the sole supply to the basilar artery. The basilar artery is small in calibe r in this patient with variant anatomy intracranially with persistent circulation bilaterally.. Percent stenosis is calculated using the diameter of the stenotic region over the diameter of the nor mal distal internal carotid artery. CONCLUSION: 1. 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 The right vertebral artery i s the sole supply to the basilar artery which is small in caliber secondary to anatomical variation i ntracranially. 2. Patent carotid arteries bilaterally. Electronically signed by: Vinayak Mcneill MD 10/27/2017 11:36 AM EDT
--- NOTE | 2017-10-27 14:40 | ECG ---
Date Performed: 10/26/2017 Time Performed: 17:32:26 PTAGE: 82 years EKG: Sinus rhythm WITH SHORT AR INTERVAL BORDERLINE ECG NO PREVIOUS TRACING DOCTOR: Romel Graham Interpretating Date/Time 10/27/2017 14:36:01
[2017-10-27 17:25] LABS: Hemoglobin A1c 7.8 % (4.3-6.0)
[2017-10-27 18:02] LABS: Creatine Kinase 183 U/L (26-192); Free T4 (Free Thyroxine) 1.23 ng/dL (0.76-1.46); Vitamin B12 1581 pg/mL (193-986)
[2017-10-27 18:57] LABS: Bilirubin,Urine Negative (Negative); Clarity,Urine Clear (Clear); Color,Urine Straw (Yellw/Straw); Glucose,Urine (UA) Negative (Negative); Leukocyte Esterase,Urine Negative (Negative); Nitrite,Urine Negative (Negative); Specific Gravity,Urine 1.014 (1.002-1.035); Squamous Epithelial Cell,Urine 1 /hpf (0-5)
--- NOTE | 2017-10-27 21:06 | US ---
EXAM DATE: 10/27/2017 8:46 PM EDT AGE/SEX: 82 years / Female INDICATIONS: Bilateral leg pain. CLINICAL DATA: This is the patient's initial encounter. Patient reports that signs and symptoms have been present for 2 days and indicates a pain score of 4/10. MEDICAL/SURGICAL HISTORY: Hypertension. Diabetes. Hyperlipidemia. None. COMPARISON: No prior exams available for comparison. TECHNIQUE: Venous ultrasound of both lower extremities was performed from the inguinal ligament to t he proximal calf. Real-time, color Doppler and spectral tracing, compression and augmentation techni ques were used. FINDINGS: Right Leg: Normal compression of the deep venous system from the inguinal region to the proximal tez f. No echogenic clot is seen. Normal response of the venous system to augmentation and respiration. Left Leg: Normal compression of the deep venous system from the inguinal region to the proximal calf . No echogenic clot is seen. Normal response of the venous system to augmentation and respiration. CONCLUSION: No venous thrombosis of either lower extremity. Electronically signed by: Dave Lepe MD 10/27/2017 9:04 PM EDT
[2017-10-28] MEDS: Insulin NovoLIN Regular Correctional Sugar Inj SQ SCH ×4 (03:29→16:55)
[2017-10-28] MEDS: Heparin - SQ 10,000 UNITS/ML Vial SQ SCH ×2 (06:07→15:38)
[2017-10-28] MEDS: Sod Chloride 0.9% Inj 1,000 ML IV.CONT SCH ×2 (06:08→16:55)
[2017-10-28] MEDS: Triamterene/HCTZ 37.5 MG/25 MG Tablet PO SCH (09:24)
[2017-10-28] MEDS: Metoprolol Tartrate 50 MG Tablet PO SCH (09:25)
[2017-10-28] MEDS: Budesonide-Formoterol 160/4.5 MCG 6 GM Inhaler INH SCH (09:25)
[2017-10-28 09:30] VITALS: O2SAT 96
--- NOTE | 2017-10-28 10:19 | P.PNNEU ---
Subjective Subjective Comments: No acute events reported No headache No chest pain No dyspnea sr Active Medications: Active Medications Aspirin (Ecotrin) 81 mg PO DAILY [facility] Last Admin: 10/28/17 09:24 Dose: 81 mg Atorvastatin Calcium (Lipitor) 10 mg PO DAILY [facility] Last Admin: 10/28/17 09:24 Dose: 10 mg Budesonide/Formoterol Fumarate (Symbicort 160/4.5 Mcg Inh) 2 puff INH BID [facility] Last Admin: 10/28/17 09:25 Dose: 2 puff Clopidogrel Bisulfate (Plavix) 75 mg PO DAILY [facility] Last Admin: 10/28/17 09:25 Dose: 75 mg Dextrose (D50w Vial) 50 ml IV.PUSH UNSCH PRN PRN Reason: PER HYPOGLYCEMIA PROTOCOL Glucagon (Glucagon Inj) 1 mg OTHER PRN PRN PRN Reason: for Hypoglycemia Protocol Heparin Sodium (Porcine) (Heparin Inj) 5,000 units SQ Q8HR [facility] Last Admin: 10/28/17 06:07 Dose: 5,000 units Sodium Chloride (Ns Inj) 1,000 mls @ 70 mls/hr IV.CONT .[id number] [facility] Last Admin: 10/28/17 06:08 Dose: Not Given Insulin Human Regular (Novolin R Correctional Sugar Inj) 0 units SQ ACHS AND 3AM [facility]; Protocol Last Admin: 10/28/17 09:23 Dose: Not Given Metoprolol Tartrate (Lopressor) 50 mg PO BID [facility] Last Admin: 10/28/17 09:25 Dose: 50 mg Sodium Chloride (Ns Flush) 2 ml IV.FLUSH BID [facility] Last Admin: 10/28/17 09:25 Dose: Not Given Sodium Chloride (Ns Flush) 2 ml IV.FLUSH PRN PRN PRN Reason: FLUSH AFTER USING IV ACCESS Triamterene/HCTZ (Maxzide 37.5 Mg-25 Mg) 1 tab PO DAILY [facility] Last Admin: 10/28/17 09:24 Dose: 1 tab Allergies/Adverse Reactions: Allergies Allergy/AdvReac Type Severity Reaction Status Date / Time No Known Allergies Allergy Unverified 10/26/17 16:28 Physical Exam Vital signs: Vital Signs 10/27/17 12:00 10/27/17 16:00 10/27/17 16:25 Temperature 97.8 F 97.1 F L Pulse Rate 59 L 71 72 Respiratory Rate 16 17 Blood Pressure 132/65 189/77 H Pulse Oximetry 97 96 10/27/17 20:00 10/28/17 00:00 10/28/17 04:00 Temperature 97.6 F 98.5 F 98.5 F Pulse Rate 69 69 75 Respiratory Rate 20 20 18 Blood Pressure 153/68 H 154/68 H 150/69 H Pulse Oximetry 97 96 97 10/28/17 08:00 10/28/17 10:15 Temperature 97.9 F Pulse Rate 68 62 Respiratory Rate 20 Blood Pressure 166/70 H Pulse Oximetry 96 Intake & Output 10/27/17 10/28/17 10/28/17 18:59 06:59 18:59 Intake Total 500 / 500 1860 / 1860 Balance 500 / 500 1860 / 1860 Intake: IV 500 / 500 1500 / 1500 NS Inj 1,000 ML @ 70 mls/hr IV. 1000 / 1000 CONT .[id number] [facility] Rx#:[id number] Oral 360 / 360 Other: # Voids 3 Date of Last Bowel Movement 10/26/17 Narrative: speech ok gait steady Objective Laboratory Results - last 24 hr 10/27/17 10/27/17 10/27/17 06:59 11:58 16:27 ESR POC Glucose 181 H 144 H Hemoglobin A1c 7.8 H Total Creatine Kinase Troponin I Vitamin B12 Free T4 Urine Color Urine Clarity Urine pH Ur Specific Speed Urine Protein Urine Glucose (UA) Urine Ketones Urine Occult Blood Urine Nitrate Urine Bilirubin Urine Urobilinogen Ur Leukocyte Esterase Urine RBC Urine WBC Ur Squamous Epith Cells Micro UA Comment Urine Culture Comments 10/27/17 10/27/17 10/27/17 16:55 16:55 17:40 ESR 3 POC Glucose Hemoglobin A1c Total Creatine Kinase 183 Troponin I Less than 0.02 L Vitamin B12 1581 H Free T4 1.23 Urine Color Straw Urine Clarity Clear Urine pH 7.0 Ur Specific Speed 1.014 Urine Protein Negative Urine Glucose (UA) Negative Urine Ketones Negative Urine Occult Blood Negative Urine Nitrate Negative Urine Bilirubin Negative Urine Urobilinogen Less than 2 Ur Leukocyte Esterase Negative Urine RBC Less than 1 Urine WBC 1 Ur Squamous Epith Cells 1 Micro UA Comment Culture not ind Urine Culture Comments Culture not ind 10/27/17 10/28/17 10/28/17 21:02 03:15 07:59 ESR POC Glucose 158 H 143 H 142 H Hemoglobin A1c Total Creatine Kinase Troponin I Vitamin B12 Free T4 Urine Color Urine Clarity Urine pH Ur Specific Speed Urine Protein Urine Glucose (UA) Urine Ketones Urine Occult Blood Urine Nitrate Urine Bilirubin Urine Urobilinogen Ur Leukocyte Esterase Urine RBC Urine WBC Ur Squamous Epith Cells Micro UA Comment Urine Culture Comments Review/Management - Review/Management Plan: imp old left cbllr cva and left vert occ could have been cause remotely of old cva the r vert and basilar look nl to me asa statin plavix can dc asa in three days if holter done and echo neg could dc home ua neg sr here so far
--- NOTE | 2017-10-28 11:37 | P.PN ---
Physical Exam Vital signs: Vital Signs 10/27/17 12:00 10/27/17 16:00 10/27/17 16:25 Temperature 97.8 F 97.1 F L Pulse Rate 59 L 71 72 Respiratory Rate 16 17 Blood Pressure 132/65 189/77 H Pulse Oximetry 97 96 10/27/17 20:00 10/28/17 00:00 10/28/17 04:00 Temperature 97.6 F 98.5 F 98.5 F Pulse Rate 69 69 75 Respiratory Rate 20 20 18 Blood Pressure 153/68 H 154/68 H 150/69 H Pulse Oximetry 97 96 97 10/28/17 08:00 10/28/17 10:15 Temperature 97.9 F Pulse Rate 68 62 Respiratory Rate 20 Blood Pressure 166/70 H Pulse Oximetry 96 Intake & Output 10/27/17 10/28/17 10/28/17 18:59 06:59 18:59 Intake Total 500 / 500 1860 / 1860 Balance 500 / 500 1860 / 1860 Intake: IV 500 / 500 1500 / 1500 NS Inj 1,000 ML @ 70 mls/hr IV. 1000 / 1000 CONT .[id number] [facility] Rx#:[id number] Oral 360 / 360 Other: # Voids 3 1 Date of Last Bowel Movement 10/26/17 Narrative: Subjective: In the chair feels improved today speech improving, still takes time to answer questions and is not back at baseline. No nausea or vomiting today. No new motor , speech or sensory deficit. No change in vision. No pain in her legs today and there is no swelling, Doppler US reviewed and no DVT No n/v/d/c. Denies chest pain or sob. No fever or chills. Physical exam GENERAL: Elderly female, with slow responses, appears tired. CARDIOVASCULAR: Regular rate and rhythm. RESPIRATORY: No accessory muscle use. Clear to auscultation. Breath sounds equal bilaterally. GASTROINTESTINAL: Abdomen soft, non-tender, nondistended. Hepatic and splenic margins not palpable. MUSCULOSKELETAL: Extremities without clubbing, cyanosis, or edema. No obvious deformities. NEUROLOGICAL: Awake and alert. No obvious cranial nerve deficits. Motor grossly within normal limits. Five out of 5 muscle strength in the arms and legs. Normal speech. Assessment and Plan 1. 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 Start Plavix, continue Plavix at home CTA neck reviewed, patent carotid arteries bilaterally. Holter monitor ECHO normal Keep normotensive, normoglycemic DC IV fluids 2. Diabetes mellitus Holding home metformin while inpatient. Resume metformin at discharge Sliding-scale insulin Monitor blood glucose A1c 7.8. 3. Hypertension/hyperlipidemia Continue home medications Lipid profile pending 4. Mild leukocytosis, UA is normal. Might be reactive from stroke. 5. Pain in her legs do doppler US no signs of DVT DVT ppx with SQ Heparin Discussed with the patient, family at bedside. If echo normal, CTA normal, holter monitor can DC patient. Results - Labs CBC & Chem 7: 10/26/17 17:10 10/26/17 17:10 Laboratory Results - last 24 hr 10/27/17 10/27/17 10/27/17 06:59 11:58 16:27 ESR POC Glucose 181 H 144 H Hemoglobin A1c 7.8 H Total Creatine Kinase Troponin I Vitamin B12 Free T4 Urine Color Urine Clarity Urine pH Ur Specific [place] Urine Protein Urine Glucose (UA) Urine Ketones Urine Occult Blood Urine Nitrate Urine Bilirubin Urine Urobilinogen Ur Leukocyte Esterase Urine RBC Urine WBC Ur Squamous Epith Cells Micro UA Comment Urine Culture Comments 10/27/17 10/27/17 10/27/17 16:55 16:55 17:40 ESR 3 POC Glucose Hemoglobin A1c Total Creatine Kinase 183 Troponin I Less than 0.02 L Vitamin B12 1581 H Free T4 1.23 Urine Color Straw Urine Clarity Clear Urine pH 7.0 Ur Specific [place] 1.014 Urine Protein Negative Urine Glucose (UA) Negative Urine Ketones Negative Urine Occult Blood Negative Urine Nitrate Negative Urine Bilirubin Negative Urine Urobilinogen Less than 2 Ur Leukocyte Esterase Negative Urine RBC Less than 1 Urine WBC 1 Ur Squamous Epith Cells 1 Micro UA Comment Culture not ind Urine Culture Comments Culture not ind 10/27/17 10/28/17 10/28/17 21:02 03:15 07:59 ESR POC Glucose 158 H 143 H 142 H Hemoglobin A1c Total Creatine Kinase Troponin I Vitamin B12 Free T4 Urine Color Urine Clarity Urine pH Ur Specific [place] Urine Protein Urine Glucose (UA) Urine Ketones Urine Occult Blood Urine Nitrate Urine Bilirubin Urine Urobilinogen Ur Leukocyte Esterase Urine RBC Urine WBC Ur Squamous Epith Cells Micro UA Comment Urine Culture Comments - Imaging Impressions Neck CTA 10/27/17 00:00 CONCLUSION: 1. 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 The right vertebral artery is the sole supply to the basilar artery which is small in caliber secondary to anatomical variation intracranially. 2. Patent carotid arteries bilaterally. Venous Doppler Study 10/27/17 00:00 CONCLUSION: No venous thrombosis of either lower extremity.
[2017-10-28 12:11] VITALS: RESP 19
--- NOTE | 2017-10-28 15:42 | P.DS ---
Date of admission: 10/26/17 19:41 Primary care physician: UNKNOWN Brief History from admission: 82-year-old female with a past medical history significant for diabetes mellitus , hypertension and hyperlipidemia presents to the emergency department for evaluation of possible stroke. The patient's family reports that approximately 4 days ago she began to be slow to respond with word finding difficulties. She has been significantly fatigued without lateralizing weakness. No facial droop was noted. No slurred speech. The patient was seen by her PCP today who was concerned that she may have had a stroke. He ordered an outpatient MRI that could not be done until tomorrow. The family wished to have her worked up sooner than that so they brought her to the emergency department for further evaluation. DS: Medications - Discharge Medications Prescriptions: clopidogrel [Plavix] 75 mg PO DAILY #30 tab DS: Summary Hospital Course: Physical exam GENERAL: Elderly female, with slow responses, appears tired. CARDIOVASCULAR: Regular rate and rhythm. RESPIRATORY: No accessory muscle use. Clear to auscultation. Breath sounds equal bilaterally. GASTROINTESTINAL: Abdomen soft, non-tender, nondistended. Hepatic and splenic margins not palpable. MUSCULOSKELETAL: Extremities without clubbing, cyanosis, or edema. No obvious deformities. NEUROLOGICAL: Awake and alert. No obvious cranial nerve deficits. Motor grossly within normal limits. Five out of 5 muscle strength in the arms and legs. Normal speech. Assessment and Plan 1. 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 Start Plavix Plan for CTA neck. Holter monitor ECHO nl Allow permissive HTN, NS at 70 cc/hour 2. Diabetes mellitus Holding home metformin Sliding-scale insulin Monitor blood glucose A1c pending 3. Hypertension/hyperlipidemia Continue home medications Lipid profile pending 4. Mild leukocytosis, UA normal. Might be reactive from stroke. 5. Pain in her legs do doppler US to r/o DVT DVT ppx with SQ Heparin Discussed with the patient, family at bedside. Dr Nicolas neurology If echo normal, CTA normal, Holter monitor can DC patient. Will repeat labs tomorrow as patient with leukocytosis. - Time Spent with Patient Total time spent providing and/or coordinating discharge services: Greater than 30 minutes - Quality: VTE Deep Vein Thrombosis/Pulmonary Embolism Present on Admission: No Exam Vital signs: Vital Signs 10/27/17 16:00 08/10/18 16:25 10/27/17 20:00 Temperature 97.1 F L 97.6 F Pulse Rate 71 72 69 Respiratory Rate 17 20 Blood Pressure 189/77 H 153/68 H Pulse Oximetry 96 97 10/28/17 00:00 10/28/17 04:00 10/28/17 08:00 Temperature 98.5 F 98.5 F 97.9 F Pulse Rate 69 75 68 Respiratory Rate 20 18 20 Blood Pressure 154/68 H 150/69 H 166/70 H Pulse Oximetry 96 97 96 10/28/17 10:15 10/28/17 12:00 Temperature 97.7 F Pulse Rate 62 68 Respiratory Rate 19 Blood Pressure 141/75 H Pulse Oximetry 96 Intake & Output 10/27/17 10/28/17 10/28/17 18:59 06:59 18:59 Intake Total 500 / 500 1860 / 1860 0 / 0 Balance 500 / 500 1860 / 1860 0 / 0 Intake: IV 500 / 500 1500 / 1500 0 / 0 NS Inj 1,000 ML @ 70 mls/hr IV. 1000 / 1000 0 / 0 CONT .[id number] [facility] Rx#:[id number] Oral 360 / 360 Other: # Voids 3 1 Date of Last Bowel Movement 10/26/17 Results Procedures completed during hospitalization: none Labs on day of discharge: Labs from last 24 hours 10/28/17 10/28/17 10/28/17 12:03 07:59 03:15 ESR POC Glucose 210 H 142 H 143 H Hemoglobin A1c Total Creatine Kinase Troponin I Vitamin B12 Free T4 Urine Color Urine Clarity Urine pH Ur Specific [place] Urine Protein Urine Glucose (UA) Urine Ketones Urine Occult Blood Urine Nitrate Urine Bilirubin Urine Urobilinogen Ur Leukocyte Esterase Urine RBC Urine WBC Ur Squamous Epith Cells Micro UA Comment Urine Culture Comments Thyroglobulin Antibody Thyroid Peroxidase Ab 10/27/17 10/27/17 10/27/17 21:02 17:40 16:55 ESR POC Glucose 158 H Hemoglobin A1c Total Creatine Kinase Troponin I Vitamin B12 Free T4 Urine Color Straw Urine Clarity Clear Urine pH 7.0 Ur Specific [place] 1.014 Urine Protein Negative Urine Glucose (UA) Negative Urine Ketones Negative Urine Occult Blood Negative Urine Nitrate Negative Urine Bilirubin Negative Urine Urobilinogen Less than 2 Ur Leukocyte Esterase Negative Urine RBC Less than 1 Urine WBC 1 Ur Squamous Epith Cells 1 Micro UA Comment Culture not ind Urine Culture Comments Culture not ind Thyroglobulin Antibody Pending Thyroid Peroxidase Ab Pending 10/27/17 10/27/17 10/27/17 16:55 16:55 16:27 ESR 3 POC Glucose 144 H Hemoglobin A1c Total Creatine Kinase 183 Troponin I Less than 0.02 L Vitamin B12 1581 H Free T4 1.23 Urine Color Urine Clarity Urine pH Ur Specific [place] Urine Protein Urine Glucose (UA) Urine Ketones Urine Occult Blood Urine Nitrate Urine Bilirubin Urine Urobilinogen Ur Leukocyte Esterase Urine RBC Urine WBC Ur Squamous Epith Cells Micro UA Comment Urine Culture Comments Thyroglobulin Antibody Thyroid Peroxidase Ab 10/27/17 06:59 ESR POC Glucose Hemoglobin A1c 7.8 H Total Creatine Kinase Troponin I Vitamin B12 Free T4 Urine Color Urine Clarity Urine pH Ur Specific [place] Urine Protein Urine Glucose (UA) Urine Ketones Urine Occult Blood Urine Nitrate Urine Bilirubin Urine Urobilinogen Ur Leukocyte Esterase Urine RBC Urine WBC Ur Squamous Epith Cells Micro UA Comment Urine Culture Comments Thyroglobulin Antibody Thyroid Peroxidase Ab - Impressions ITS Impressions Carotid Doppler Study 10/26/17 00:00 CONCLUSION: 1. Right Internal Carotid Artery: Findings indicate <50% stenosis. 2. Left Internal Carotid Artery: Findings indicate <50% stenosis. Chest X-Ray 10/26/17 16:51 CONCLUSION: No acute cardiopulmonary disease demonstrated. Head CT 10/26/17 16:51 CONCLUSION: 1. Focal hypodensity in the left thalamus characteristic of a nonhemorrhagic infarct. 2. No other significant abnormality. . Head MRI 10/26/17 16:56 CONCLUSION: 1. Acute nonhemorrhagic infarct left thalamus 2. Otherwise unremarkable exam. Head MRA 10/26/17 16:56 CONCLUSION: 1. Variant anatomy. Otherwise, unremarkable exam. Neck CTA 10/27/17 00:00 CONCLUSION: 1. 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 The right vertebral artery is the sole supply to the basilar artery which is small in caliber secondary to anatomical variation intracranially. 2. Patent carotid arteries bilaterally. Venous Doppler Study 10/27/17 00:00 CONCLUSION: No venous thrombosis of either lower extremity. Discharge Plan - Discharge Disposition Patient Disposition: W/Home Health Service - Discharge Condition Condition: Stable - Discharge Order Discharge Orders: Discharge Order (Routine); Ordered 10/28/17 Ordered By: Katja Berry - Discharge Details Anticipated Discharge Date: 10/28/17 - Physicians Team Primary Care Provider: UNKNOWN, Attending Provider: Katja Berry Other Providers: Jorgito Nicolas MD
[2017-10-28 16:35] VITALS: BP 139/72; PULSE 69; TEMP 97.2
--- NOTE | 2017-10-28 17:08 | ECHRPT ---
Indication: CVA/TIA CONCLUSIONS The left ventricular systolic function is low normal with an estimated ejection fraction in the rang e of 50- 55%. Wall thickness is normal. Normal left ventricular size. The left atrial size is mildly dilated. Mitral annular calcification is present. [id number] mitral valve regurgitation. Trace aortic valve regurgitation. There is mild to moderate tricuspid valve regurgitation. The estimated pulmonary arterial pressure is 36.8 mmHg. BP: / HR: Rhythm: MEASUREMENTS (Male / Female) Normal Values Technical Quality:Fair 2D ECHO LV Diastolic Diameter PLAX 4.9 cm 4.2 - 5.9 / 3.9 - 5.3 cm LV Systolic Diameter PLAX 3.4 cm IVS Diastolic Thickness 0.9 cm 0.6 - 1.0 / 0.6 - 0.9 cm LVPW Diastolic Thickness 0.9 cm 0.6 - 1.0 / 0.6 - 0.9 cm LV Relative Wall Thickness 0.4 RV Internal Dim ED PLAX 3.2 cm LVOT Diameter 1.9 cm LA Systolic Diameter LX 4.0 cm 3.0 - 4.0 / 2.7 - 3.8 cm M-MODE Aortic Root Diameter MM 2.3 cm LA Systolic Diameter MM 4.1 cm LA Ao Ratio MM 1.8 AV Cusp Separation MM 1.3 cm DOPPLER AV Peak Velocity 121.0 cm/s AV Peak Gradient 5.9 mmHg LVOT Peak Velocity 89.3 cm/s LVOT Peak Gradient 3.2 mmHg AV Area Cont Eq pk 2.1 cm MV Area PHT 2.9 cm Mitral E Point Velocity 79.5 cm/s Mitral A Point Velocity 116.0 cm/s Mitral E to A Ratio 0.7 LV E' Lateral Velocity 7.2 cm/s Mitral E to LV E' Lateral Ratio 11.0 LV E' Septal Velocity 6.8 cm/s Mitral E to LV E' Septal Ratio 11.7 TR Peak Velocity 259.0 cm/s TR Peak Gradient 26.8 mmHg Right Atrial Pressure 10.0 mmHg Pulmonary Artery Systolic Pressu 36.8 mmHg Right Ventricular Systolic Press 36.8 mmHg FINDINGS LEFT VENTRICLE The left ventricular systolic function is low normal with an estimated ejection fraction in the rang e of 50- 55%. Wall thickness is normal. Normal left ventricular size. RIGHT VENTRICLE Normal right ventricular size and systolic function. LEFT ATRIUM The left atrial size is mildly dilated. RIGHT ATRIUM The right atrial size is normal. ATRIAL SEPTUM Normal atrial septal thickness without atrial level shunting by limited color doppler interrogation. AORTA The aortic root and proximal ascending aorta are normal in size on limited imaging. MITRAL VALVE Mitral annular calcification is present. [id number] mitral valve regurgitation. AORTIC VALVE Trileaflet aortic valve. Trace aortic valve regurgitation. TRICUSPID VALVE Structurally normal tricuspid valve. There is mild to moderate tricuspid valve regurgitation. The estimated pulmonary arterial pressure is 36.8 mmHg. PULMONARY VALVE No pulmonary valve regurgitation or stenosis. VESSELS The inferior vena cava is normal in size. PERICARDIUM No pericardial effusion. Michael Carey MD (Electronically Signed) Final Date:28 October 2017 17:07
--- NOTE | 2017-10-30 08:26 | HM ---
Date Performed: 10/27/2017 Time Performed: 10:20:00 HOOKUP DATE: 10/27/17 10:20:00 AM Fri ANALYSIS START TIME: 10/27/2017 10:25:00 AM ANALYSIS END TIME: 10/28/2017 9:58:11 AM PATIENT AGE: 82 PATIENT HEIGHT: 63 PATIENT WEIGHT: 319 DRUG LIST: ROOM 1516 PATIENT DIAGNOSIS: LEFT THALAMIC CVA TEST NARRATIVE: The patient's average heart rate was 66 BPM. No episodes of tachycardia wer e noted. No episodes of bradycardia were noted. No pauses exceeding 2.0 seconds were noted. 136 ventricular ectopics, which represented < 1% of the total beat count, were noted. The highest ve ntricular ectopic frequency occurred from 09:00 AM to 10:00 AM Sat. During this time 19 VE(s) occurr ed. Ventricular ectopics were observed as 134 isolated beat(s) and as 1 couplet(s). No runs were no denton. 14 supraventricular ectopics, which represented < 1% of the total beat count, were noted. T he highest supraventricular ectopic frequency occurred from 03:00 PM to 04:00 PM Fri. During this ti me 2 SVE(s) occurred. Multiple episodes of ST depression (defined as -1.0 mm or more) were noted in channel 1. The maximum depression of -2.2 mm occurred at 03:00:46 PM Fri. Multiple episodes of ST depression (defined as -1.0 mm or more) were noted in channel 2. The maximum depression of -2.1 mm occurred at 08:18:59 PM Fri. Multiple episodes of ST depression (defined as -1.0 mm or more) wer e noted in channel 3. The maximum depression of -2.4 mm occurred at 04:43:39 PM Fri. NO DIARY GIVEN TO PATIENT TEST INTERPRETATION: Sinus rhythm Rare PACs and PVCs Signed by : St marleen Thomson
== END 2017-10-28 19:27 | disposition home health service (06) ==
LOC: NEPC 16:06 → NEDA 19:41 → N05 21:05
PROVIDERS: ADMIT Hospitalist; ATTEND Hospitalist